=== PATIENT | male | born 1955 | race Caucasian/White ===

== ENCOUNTER 2016-05-26 07:47 | Inpatient (IN) | payer OTHER ==
[~2016-05-26] VITALS: Ht 162.6 cm; Wt 63.7 kg
[2016-05-26] VITALS (13 sets, daily range): BP systolic 132–187; BP diastolic 72–109; PULSE 86–109; RESP 15–30; TEMP 98.2; O2SAT 85–100
[2016-05-26] MEDS ORDERED: SODIUM CHLOR 0.9% 1000 ML INJ 1,000 ML IV SCH (07:50)
[2016-05-26] MEDS ORDERED: SODIUM CHLORIDE 0.9% FLUSH 5 ML FLUSH IVF PRN ×2 (08:00→14:15)
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
[2016-05-26 08:08] LABS: AUTOMATED NEUTROPHIL # 4.8 TH/MM3 (1.8-7.7); BASOPHIL # 0.1 TH/MM3 (0-0.2); BASOPHIL % 0.6 % (0.0-2.0); EOSINOPHIL # 0.1 TH/MM3 (0-0.4); EOSINOPHIL % 1.2 % (0.0-4.0); HEMATOCRIT 47.2 % (39.0-51.0); HEMO FLAGS DIFF FINAL; LYMPH % 38.7 % (9.0-44.0); LYMPHOCYTE # 3.8 TH/MM3 (1.0-4.8); MEAN CELL VOLUME 90.4 FL (80.0-100.0); MEAN CORPUSCULAR HEMOGLOBIN 31.7 PG (27.0-34.0); MONO % 10.8 % (0.0-8.0); NEUT % 48.7 % (16.0-70.0); PLATELET COUNT 316 TH/MM3 (150-450); RED BLOOD COUNT 5.22 MIL/MM3 (4.50-5.90); WHITE BLOOD COUNT 9.8 TH/MM3 (4.0-11.0)
--- NOTE | 2016-05-26 08:12 | RADRPT ---
EXAM DATE/TIME: 05/26/2016 07:48 [facility] COMPARISON: No previous studies available for comparison. INDICATIONS: Short of breath and left side chest pain, smoker MEDICAL HISTORY: Emphysema. SURGICAL HISTORY: None. ENCOUNTER: Initial ACUITY: 1 day PAIN SCORE: 10/10 LOCATION: Left chest FINDINGS: There is a large pneumothorax on the left with tension associated with rib fractures. Right lung is clear. Heart and pulmonary vascularity are normal. CONCLUSION: Large tension pneumothorax on the left. Edil León MD FACR on May 26, 2016 at 8:07 Board Certified Radiologist. This report was verified electronically.
[2016-05-26] MEDS ORDERED: HYDROmorphone HCL PF 1 MG/ML VIAL IV PUSH ONE (08:15)
[2016-05-26] MEDS ORDERED: MIDAZOLAM HCL 5 MG/ML VIAL (1 ML) IV ONE (08:15)
[2016-05-26] MEDS ORDERED: LIDOCAINE 1%/EPINEPHrine 1:100,000 SOLN 50 ML VIAL INFIL ONE (08:15)
[2016-05-26 08:16] LABS: APTT (PATIENT) 27.2 SEC (24.3-30.1); PROTHROMBIN TIME - PATIENT 10.7 SEC (9.8-11.6)
[2016-05-26 08:26] LABS: ALKALINE PHOSPHATASE 94 U/L (45-117); TOTAL BILIRUBIN ADULT 0.4 MG/DL (0.2-1.0)
[2016-05-26 08:32] LABS: ALT (GPT) 22 U/L (12-78); ANION GAP 9 MEQ/L (5-15); BICARBONATE 25.4 MEQ/L (21.0-32.0); BLOOD UREA NITROGEN 9 MG/DL (7-18); CHLORIDE 103 MEQ/L (98-107); GLOMERULAR FILTRATION RATE 96 ML/MIN (>89); SODIUM (NA) 137 MEQ/L (136-145)
[2016-05-26 08:35] LABS: AST (GOT) 27 U/L (15-37)
[2016-05-26] MEDS ORDERED: IOHEXOL 350 MG/ML 10 ML VIAL (for RAD DIAG) IV ONE (09:18)
--- NOTE | 2016-05-26 09:23 | RADRPT ---
EXAM DATE/TIME: 05/26/2016 08:48 [facility] COMPARISON: CHEST SINGLE AP, May 26, 2016, 7:48. INDICATIONS : Followup left pneumothorax status post chest tube placement. MEDICAL HISTORY : pneumothorax SURGICAL HISTORY : None. ENCOUNTER: Subsequent ACUITY: 1 day PAIN SCORE: 8/10 LOCATION: Left chest FINDINGS: A single AP portable erect expiratory view of the chest was obtained and demonstrates interval placem ent of a left-sided chest tube with the tip projected over the medial left lung apex. The pneumothora x has improved significantly with mild residual noted on the upper left lateral chest wall. The lung appears mostly reinflated with streaky opacity remaining in the lung base. Extensive overlying emphy sema is again noted. The heart size remains within normal limits. There is apparent mild blunting of the left costophrenic angle. Multiple rib fractures are again noted. CONCLUSION: 1. Interval placement of left-sided chest tube with marked improvement in pneumothorax with small to moderate residual. 2. Multiple left rib fractures again noted with residual opacity remaining in the left lung base. Elio Tamayo MD on May 26, 2016 at 9:18 Board Certified Radiologist. This report was verified electronically.
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
[2016-05-26] MEDS ORDERED: MORPHINE SULFATE 8 MG/ML INJ IV PUSH ONE (12:45)
[2016-05-26] MEDS ORDERED: Post-op Orders (for Pharmacy) MISC XX ONE (14:15)
[2016-05-26] MEDS: SODIUM CHLOR 0.9% 1000 ML INJ 1,000 ML IV SCH (14:50)
[2016-05-26] MEDS: HYDROmorphone HCL PF 1 MG/ML VIAL IV PRN ×3 (16:11→21:03)
[2016-05-26] MEDS: SODIUM CHLORIDE 0.9% FLUSH 5 ML FLUSH IVF SCH (20:27)
[2016-05-26] MEDS: oxyCODONE/ACETAMINOPHEN 5 MG/325 MG TAB PO PRN (20:27)
[2016-05-26] MEDS: FAMOTIDINE 20 MG TAB PO SCH (20:33)
[2016-05-26] MEDS: DOCUSATE SODIUM 100 MG CAP PO SCH (20:33)
[2016-05-26] MEDS ORDERED: HYDROmorphone HCL PF 1 MG/ML VIAL IV ONE (23:00)
[2016-05-27] VITALS (11 sets, daily range): BP systolic 133–165; BP diastolic 72–82; PULSE 84–113; RESP 15–24; TEMP 99–100.1; O2SAT 94–98
[2016-05-27] MEDS: SODIUM CHLOR 0.9% 1000 ML INJ 1,000 ML IV SCH ×2 (00:06→10:28)
[2016-05-27] MEDS: HYDROmorphone HCL PF 1 MG/ML VIAL IV SCH ×12 (00:52→23:00)
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
[2016-05-27 07:17] LABS: BICARBONATE 30.4 MEQ/L (21.0-32.0); POTASSIUM 3.8 MEQ/L (3.5-5.1)
[2016-05-27] MEDS: DOCUSATE SODIUM 100 MG CAP PO SCH ×2 (09:00→21:35)
[2016-05-27] MEDS: SODIUM CHLORIDE 0.9% FLUSH 5 ML FLUSH IVF SCH ×2 (10:28→21:35)
[2016-05-27] MEDS: ENOXAPARIN SODIUM 40 MG/0.4 ML SYRINGE SQ SCH (10:28)
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
[2016-05-27] MEDS: MULTIVITAMIN INJ 10 ML, THIAMINE INJ 100 MG, FOLIC ACID INJ 1 MG in SODIUM CHLORID 0.9%... IV SCH (17:40)
[2016-05-27] MEDS: FAMOTIDINE 20 MG TAB PO SCH (21:35)
[2016-05-28] VITALS (8 sets, daily range): BP systolic 125–163; BP diastolic 65–85; PULSE 88–107; RESP 17–20; TEMP 98.2–99.9; O2SAT 92–99
[2016-05-28] MEDS: HYDROmorphone HCL PF 1 MG/ML VIAL IV SCH ×13 (00:18→23:35)
[2016-05-28 06:10] LABS: BASOPHIL % 0.3 % (0.0-2.0); EOSINOPHIL # 0.2 TH/MM3 (0-0.4); EOSINOPHIL % 1.8 % (0.0-4.0); HEMATOCRIT 41.3 % (39.0-51.0); HEMO FLAGS DIFF FINAL; LYMPH % 20.7 % (9.0-44.0); LYMPHOCYTE # 1.8 TH/MM3 (1.0-4.8); MEAN CELL VOLUME 89.5 FL (80.0-100.0); MEAN CORPUSCULAR HEMOGLOBIN 31.4 PG (27.0-34.0); MONO % 8.8 % (0.0-8.0); NEUT % 68.4 % (16.0-70.0); PLATELET COUNT 198 TH/MM3 (150-450); RED BLOOD COUNT 4.61 MIL/MM3 (4.50-5.90); RED CELL DISTRIBUTION WIDTH 12.7 % (11.6-17.2); WHITE BLOOD COUNT 8.7 TH/MM3 (4.0-11.0)
[2016-05-28 06:30] LABS: ALKALINE PHOSPHATASE 64 U/L (45-117); ALT (GPT) 20 U/L (12-78); ANION GAP 7 MEQ/L (5-15); AST (GOT) 42 U/L (15-37); BICARBONATE 29.8 MEQ/L (21.0-32.0); BLOOD UREA NITROGEN 6 MG/DL (7-18); CHLORIDE 96 MEQ/L (98-107); GLOMERULAR FILTRATION RATE 147 ML/MIN (>89); MAGNESIUM 1.8 MG/DL (1.5-2.5); POTASSIUM 3.7 MEQ/L (3.5-5.1); SODIUM (NA) 133 MEQ/L (136-145)
--- NOTE | 2016-05-28 07:29 | RADRPT ---
EXAM DATE/TIME: 05/28/2016 06:51 [facility] COMPARISON: CHEST SINGLE AP, May 27, 2016, 5:34. INDICATIONS : Short of breath. MEDICAL HISTORY : Pneumothorax. SURGICAL HISTORY : Chest tube. ENCOUNTER: Subsequent ACUITY: 2 days PAIN SCORE: 3/10 LOCATION: Bilateral chest FINDINGS: A single view of the chest demonstrates no definite pneumothorax on the left side. The left chest tub e remains in place. The lungs appear be well aerated bilaterally. There continues to be subcutaneous emphysema along the left chest wall and at the base of the neck. The bony structures and heart size a re stable. CONCLUSION: No evidence of pneumothorax. No significant interval change. Fede Rios MD on May 28, 2016 at 7:27 Board Certified Radiologist. This report was verified electronically.
[2016-05-28] MEDS: ENOXAPARIN SODIUM 40 MG/0.4 ML SYRINGE SQ SCH (08:55)
[2016-05-28] MEDS: SODIUM CHLORIDE 0.9% FLUSH 5 ML FLUSH IVF SCH ×2 (08:56→21:07)
[2016-05-28] MEDS: DOCUSATE SODIUM 100 MG CAP PO SCH (08:56)
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
[2016-05-28] MEDS ORDERED: LACTULOSE SYRUP 20 GM/30 ML CUP PO ONE (15:00)
[2016-05-28] MEDS: NICOTINE 21 MG/24 HR PATCH TD SCH (15:05)
[2016-05-28] MEDS: DOCUSATE SODIUM 50 MG/SENNA 8.6 MG TAB PO SCH ×2 (15:05→21:07)
[2016-05-28] MEDS: MULTIVITAMIN INJ 10 ML, THIAMINE INJ 100 MG, FOLIC ACID INJ 1 MG in SODIUM CHLORID 0.9%... IV SCH (18:57)
[2016-05-28] MEDS: REMOVE OLD NICODERM (NICOTINE) PATCH TD SCH (21:00)
[2016-05-28] MEDS: FAMOTIDINE 20 MG TAB PO SCH (21:07)
[2016-05-29] VITALS (7 sets, daily range): BP systolic 142–169; BP diastolic 75–80; PULSE 102–106; RESP 17–20; TEMP 96.9–100.9; O2SAT 93–98
[2016-05-29] MEDS: HYDROmorphone HCL PF 1 MG/ML VIAL IV SCH ×7 (01:00→11:03)
--- NOTE | 2016-05-29 06:06 | RADRPT ---
EXAM DATE/TIME: 05/29/2016 05:25 [facility] COMPARISON: CHEST SINGLE AP, May 28, 2016, 6:51. INDICATIONS : Evalute for pneumothorax. MEDICAL HISTORY : None. SURGICAL HISTORY : Chest tube. ENCOUNTER: Subsequent ACUITY: 1 week PAIN SCORE: 7/10 LOCATION: Bilateral chest FINDINGS: The cardiac silhouette is enlarged in transverse diameter. The lungs are hypoinflated. There is subcu taneous emphysema along the left lateral chest wall. This is improving when compared with the prior e xam. There is no evidence of pneumothorax. Chest tube is in good position. CONCLUSION: 1. There is no evidence of pneumothorax. 2. Decreasing subcutaneous emphysema Vasu Napier MD on May 29, 2016 at 6:04 Board Certified Radiologist. This report was verified electronically.
[2016-05-29] MEDS: ENOXAPARIN SODIUM 40 MG/0.4 ML SYRINGE SQ SCH (09:33)
[2016-05-29] MEDS: DOCUSATE SODIUM 50 MG/SENNA 8.6 MG TAB PO SCH ×3 (09:33→22:07)
[2016-05-29] MEDS: NICOTINE 21 MG/24 HR PATCH TD SCH (09:33)
[2016-05-29] MEDS: SODIUM CHLORIDE 0.9% FLUSH 5 ML FLUSH IVF SCH ×2 (09:33→23:36)
[2016-05-29] MEDS: oxyCODONE/ACETAMINOPHEN 5 MG/325 MG TAB PO PRN ×4 (11:33→23:34)
--- NOTE | 2016-05-29 13:14 | RADRPT ---
EXAM DATE/TIME: 05/29/2016 13:02 [facility] COMPARISON: CHEST SINGLE AP, May 29, 2016, 5:25. INDICATIONS : S/p chest tube removal. MEDICAL HISTORY : None. SURGICAL HISTORY : None. ENCOUNTER: Initial ACUITY: 3 days PAIN SCORE: 0/10 LOCATION: Bilateral chest FINDINGS: A single portable frontal view the chest shows interval removal of a left thoracostomy tube. A tiny l eft apical pneumothorax is now seen. Subcutaneous air overlies left chest. Chronic elevation the righ t hemidiaphragm. Left-sided rib fractures superiorly. CONCLUSION: Tiny apical pneumothorax following left chest tube removal. Darrius Jackson Jr., MD on May 29, 2016 at 13:11 Board Certified Radiologist. This report was verified electronically.
[2016-05-29] MEDS ORDERED: OXYGENTANK NAS.CANULA (15:36)
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
[2016-05-29] MEDS ORDERED: MAGNESIUM CITRATE SOLN 300 ML BTL PO ONE (16:00)
[2016-05-29] MEDS: MULTIVITAMIN INJ 10 ML, THIAMINE INJ 100 MG, FOLIC ACID INJ 1 MG in SODIUM CHLORID 0.9%... IV SCH (17:47)
[2016-05-29] MEDS: REMOVE OLD NICODERM (NICOTINE) PATCH TD SCH (21:00)
[2016-05-29] MEDS: FAMOTIDINE 20 MG TAB PO SCH (22:06)
[2016-05-30] VITALS: BP 137/76; PULSE 91; RESP 18; TEMP 99.1; O2SAT 94
[2016-05-30] MEDS: oxyCODONE/ACETAMINOPHEN 5 MG/325 MG TAB PO PRN ×3 (03:40→12:42)
[2016-05-30] MEDS ORDERED: SENN1TAB PO (07:49)
[2016-05-30] MEDS: ENOXAPARIN SODIUM 40 MG/0.4 ML SYRINGE SQ SCH (07:57)
[2016-05-30] MEDS: NICOTINE 21 MG/24 HR PATCH TD SCH (07:57)
[2016-05-30 08:00] VITALS: BP 127/67; PULSE 101; RESP 18; TEMP 97.1; O2SAT 96
[2016-05-30] MEDS: SODIUM CHLORIDE 0.9% FLUSH 5 ML FLUSH IVF SCH (08:02)
[2016-05-30] MEDS: DOCUSATE SODIUM 50 MG/SENNA 8.6 MG TAB PO SCH (08:02)
[2016-05-30] MEDS ORDERED: OXYC1TAB63 PO (10:59)
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
[2016-05-30 12:00] VITALS: BP 139/72; PULSE 96; RESP 19; TEMP 96; O2SAT 95
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
== END 2016-05-30 15:49 | disposition home or self-care (01) | DRG 200 ==
LOC: NEPC 07:47 → NEDA 10:04 → NEDH 16:45 → N07A 05-27 15:24
PROVIDERS: ADMIT Surgery; ATTEND Surgery
PROC: 0W9B30Z Drainage of Left Pleural Cavity with Drainage Device, Percutaneous Approach (ICD-10-PCS; principal; 2016-05-26)
DX: S27.0XXA Traumatic pneumothorax, initial encounter (principal); S22.42XA Multiple fractures of ribs, left side, initial encounter for closed fracture; T79.7XXA Traumatic subcutaneous emphysema, initial encounter; V89.2XXA Person injured in unspecified motor-vehicle accident, traffic, initial encounter; Y92.410 Unspecified street and highway as the place of occurrence of the external cause; F17.200 Nicotine dependence, unspecified, uncomplicated; F10.10 Alcohol abuse, uncomplicated
CPT/HCPCS: 32551; 70450; 71010; 71260; 72125; 72128; 72131; 74177; 80048; 80053; 83735; 84100; 85018; 85025; 85610; 85730; 94150; 94620; 96361; 96374; J1170; J1650; J2250; J2270; J3411; J7030; J7040; L0150; Q9967